=== PATIENT | female | born 1965 | race Two or more races ===

== ENCOUNTER 2023-08-12 04:24 | Day surgery (SDC) | payer OTHER ==
[2023-08-11 14:26] VITALS: BMI 28.2
[2023-08-12 11:02] VITALS: TEMP 98.1
[2023-08-12 12:37] VITALS: BP 136/65; PULSE 62; RESP 20
== END 2023-08-12 12:05 | disposition home or self-care (01) ==
LOC: JASU-ENDO 04:24
PROVIDERS: ATTEND Internal Medicine Gastroenterology
PROC: 0DJD8ZZ Inspection of Lower Intestinal Tract, Via Natural or Artificial Opening Endoscopic (ICD-10-PCS; 2023-08-12)
PROC: 0DJ08ZZ Inspection of Upper Intestinal Tract, Via Natural or Artificial Opening Endoscopic (ICD-10-PCS; principal; 2023-08-12 10:00)
DX: Z13.810 Encounter for screening for upper gastrointestinal disorder (principal); K63.5 Polyp of colon; K57.30 Diverticulosis of large intestine without perforation or abscess without bleeding; I82.1 Thrombophlebitis migrans; Z79.01 Long term (current) use of anticoagulants

== ENCOUNTER 2024-02-10 04:36 | Day surgery (SDC) | payer OTHER ==
[2024-02-09 12:07] VITALS: BMI 25.8
[2024-02-10 10:01] VITALS: BP 111/65; PULSE 65; RESP 20; TEMP 98
== END 2024-02-10 10:07 | disposition home or self-care (01) ==
LOC: JASU-ENDO 04:36
PROVIDERS: ATTEND Internal Medicine Gastroenterology
PROC: 0DBH8ZX Excision of Cecum, Via Natural or Artificial Opening Endoscopic, Diagnostic (ICD-10-PCS; principal; 2024-02-10 08:30)
DX: D12.0 Benign neoplasm of cecum (principal); K64.8 Other hemorrhoids; K57.30 Diverticulosis of large intestine without perforation or abscess without bleeding
CPT/HCPCS: 88305-TC